=== PATIENT | female | born 1975 | race Caucasian/White ===

== ENCOUNTER 2021-12-15 11:54 | Emergency (ER) | payer SELFPAY ==
[2021-12-15 12:09] VITALS: BP 166/102; PULSE 94; RESP 18; TEMP 36.8; O2SAT 97; BMI 43.7
--- NOTE | 2021-12-15 12:35 | W.ED.EXTPRO ---
HPI - Extremity Problem General: Chief complaint: Extremity Injury, Upper Stated complaint: RIGHT ARM INJURY Time Seen by Provider: 12/15/21 12:20 Source: patient Mode of arrival: ambulatory Limitations: no limitations History of Present Illness: HPI Narrative: 46-year-old female presents to the ER today for right shoulder pain x4 days. Patient reports it started on and it was a gradual onset. Patient reports she been using a kiosk at work and was required to hold a pen in the air for an extended amount of time. Patient reports pain has continued to worsen as has the stiffness in the right shoulder. Patient reports yesterday she was unable to lift her arm but was trying to do some exercises to keep it from stiffening up. Patient reports today she is unable to do the exercises reports pain with any movement of the arm. Patient denies any prior injury to this arm. Patient denies any swelling. Patient denies headache, fever, chills, chest pain, shortness of breath, nausea, vomiting, diarrhea, constipation. MD Complaint: extremity pain Onset (ago): day(s) Pain Consistency: constant Location: right and upper extremity Severity scale (1-10): 8 Quality: aching Radiation: none Relieving factors: nothing Exacerbating factors: range of motion Review of Systems General: Reports: 10 or more systems reviewed and unremarkable except in HPI and below Physical Exam Const: COMMON NORMALS: no acute distress, average body habitus and patient oriented x3 GENERAL APPEARANCE: cooperative and comfortable HENMT: COMMON NORMALS: normocephalic HEAD & SCALP: normocephalic Eye: COMMON NORMALS: conjunctivae normal CONJUNCTIVA: Yes conjunctivae normal Neck/C-Spine: COMMON NORMALS: no lymphadenopathy Resp: COMMON NORMALS: normal respiratory effort EFFORT & INSPECTION: Yes able to speak in complete sentences Cardio: COMMON NORMALS: regular rate and regular rhythm RATE: regular rate RHYTHM: regular rhythm Extremity: RIGHT UPPER EXTREMITY: Yes shoulder joint Right shoulder: Yes Right shoulder joint inspection exam (Normal), Yes palpation, Yes Right shoulder joint ROM exam (Decreased ROM secondary to pain, abduction >30 degrees causes pain) and Yes Right shoulder joint special tests (pain and weakness with empty can) Right shoulder special tests: Empty can test: Positive Neuro: COMMON NORMALS: patient oriented x3, moves all extremities, no sensory deficits noted and gait normal Psych: COMMON NORMALS: mental status grossly normal, Normal thought process present and cooperative THOUGHT PROCESS: Normal thought process present Skin: COMMON NORMALS: no rashes or lesions noted and no wounds GENERAL SKIN EXAM: no rashes or lesions noted Course ED course: Patient presents to the ER today for right shoulder pain without a known injury. Patient reports this was a gradual onset on . We will get imaging at this time as patient has decreased range of motion secondary to pain. Likely this is an issue with a rotator cuff strain. Vital Signs: Vital signs: Vital Signs Temperature 98.3 F 12/15/21 12:09 Pulse Rate 94 12/15/21 12:09 Respiratory Rate 18 12/15/21 12:09 Blood Pressure 166/102 12/15/21 12:09 Pulse Oximetry 97 12/15/21 12:09 Critical Care Time Critical Care Time: Critical Care Time: No MDM - Extremity (Nontraumatic) MDM Narrative: Medical decision making narrative: 46-year-old female presents to the ER today for right shoulder pain x4 days. Patient reports this started after using a kiosk at work and having to lift her arm. Patient denies any other known injury at this time. Patient has decreased range of motion specifically abduction of the right shoulder. X-ray done and is noted to be normal. Discussed with patient that she may need further imaging however I would recommend we try conservative treatment at this time. We will do Medrol Dosepak and anti-inflammatory today. If no improvement in 7 to 10 days follow-up with PCP. Return to the ER with new or worsening symptoms. Patient verbalized understanding is in agreement with the treatment plan. Imaging Data^: Xray Ortho: Radiologist's impression: [address] [address] XRay Report Signed Patient: Sharita Ewing Unit #: [id number] : 1975 Age/Sex: 46 / F ADM Date: 12/15/21 Loc: ER Room/Bed: Attending Dr: Ordering Provider/Ordering MD: Sandra Choudhury Date of Service: 12/15/21 Procedure(s): XR shoulder RT min 2V* [id number] Accession Number(s): [id number] Report Number: [id number] PROCEDURE INFORMATION: Exam: XR Right Shoulder Exam date and time: 12/15/2021 12:44 PM Age: 46 years old Clinical indication: Pain; Shoulder; Right; Additional info: R shoulder pain TECHNIQUE: Imaging protocol: XR Right shoulder. Views: 2 or more views. COMPARISON: No relevant prior studies available. FINDINGS: Bones/joints: Osseous structures are intact. Negative for fracture. Joint spaces are preserved. Soft tissues: Normal. XR/XR shoulder RT min 2V* [id number] IMPRESSION: No acute findings. Dictated By: Jose Deshpande DO Signed By: Jose Deshpande DO Signed Date/Time: 12/15/21 1345 DD/ 1244 Discharge Plan Discharge Patient Disposition: Home Clinical Impression: Acute shoulder pain Qualifiers: Laterality: right Qualified Code(s): M25.511 - Pain in right shoulder Condition: Stable Prescriptions: New Medrol (Martín) 4 mg tablets,dose pack See Rx Instructions .ROUTE .COMPLEX Qty: 21 RF: 0 naproxen 500 mg tablet 500 mg PO BID PRN (Reason: pain) Qty: 14 RF: 0 Discharge Orders: Discharge ED (Routine); Ordered 12/15/21 Ordered By: Sandra Choudhury Referrals: Panchito Dozier MD [Primary Care Provider] - Discharge Diet: Usual diet Discharge Activity: Increase activity as tolerated Patient Instructions: Opioid Safety Activity Restrictions/Additional Instructions: Take Medrol Dosepak and naproxen as prescribed. Pendulum exercises as discussed. Follow-up with PCP in 7 to 10 days if no improvement. Return to the ER with any new or worsening symptoms. Coding Level of Care Code ED Traffic Signal Technician for [facility] Fwd Exam Comprehensive
--- NOTE | 2021-12-15 12:44 | XRR_ITS ---
PROCEDURE INFORMATION: Exam: XR Right Shoulder Exam date and time: 12/15/2021 12:44 PM Age: 46 years old Clinical indication: Pain; Shoulder; Right; Additional info: R shoulder pain TECHNIQUE: Imaging protocol: XR Right shoulder. Views: 2 or more views. COMPARISON: No relevant prior studies available. FINDINGS: Bones/joints: Osseous structures are intact. Negative for fracture. Joint spaces are preserved. Soft tissues: Normal. XR/XR shoulder RT min 2V* [id number] IMPRESSION: No acute findings.
[2021-12-15 14:00] VITALS: BP 159/99; PULSE 72; RESP 18; TEMP 36.8; O2SAT 98
== END 2021-12-15 14:01 | disposition home or self-care (01) ==
PROVIDERS: Emergency Provider Physician Assistant; PCP Family Medicine
DX: M25.511 Pain in right shoulder (principal)
CPT/HCPCS: 73030; 99282